=== PATIENT | male | born 2000 | race Caucasian/White ===

== ENCOUNTER 2021-04-22 09:39 | Emergency (ER) | payer OTHER ==
[~2021-04-22] VITALS: Ht 172.7 cm; Wt 88.0 kg
[2021-04-22] MEDS ORDERED: TRAMADOL 50MG TABLET PO ONE (12:00)
[2021-04-22] MEDS ORDERED: ACETAMINOPHEN 500MG TABLET PO ONE (12:00)
[2021-04-22 12:09] VITALS: BP 140/102
[2021-04-22] MEDS ORDERED: TRAM50TA94 MT (12:11)
== END 2021-04-22 12:53 | disposition home or self-care (01) ==
LOC: ER 09:39
DX: S62.014A Nondisplaced fracture of distal pole of navicular [scaphoid] bone of right wrist, initial encounter for closed fracture (principal); S53.401A Unspecified sprain of right elbow, initial encounter; V00.131A Fall from skateboard, initial encounter; Y93.51 Activity, roller skating (inline) and skateboarding; Y92.488 Other paved roadways as the place of occurrence of the external cause
CPT/HCPCS: 29125; 73080; 73110; 99284; A4565